=== PATIENT | male | born 1995 | race Asian ===

== ENCOUNTER 2018-01-19 00:29 | Emergency (ER) | payer OTHER, SELFPAY ==
[2018-01-19 00:33] VITALS: BP 128/93; PULSE 73; RESP 18; TEMP 37.2; O2SAT 100; BMI 21.7
--- NOTE | 2018-01-19 00:37 | DI.RAD.S_ITS ---
PROCEDURE: XR WRIST RT MIN 3V INDICATIONS: injured while lifting weights. TECHNIQUE: 4 views of the wrist were acquired. COMPARISON: None. FINDINGS: Bones: No fractures or dislocations. No suspicious bony lesions. Scaphoid view: Scaphoid is grossly intact Soft tissues: No suspicious soft tissue calcifications. IMPRESSION: No acute wrist fracture or dislocation. Dictated by: Byron Art M.D. on 01/19/2018 at 10:12 Approved by: Byron Art M.D. on 01/19/2018 at 10:12
--- NOTE | 2018-01-19 00:37 | ED.UPPEXIN ---
HPI - Extremity Injury (Upper) General Chief Complaint: Extremity Injury, Upper Stated Complaint: RIGHT HAND INJURY Time Seen by Provider: 01/19/18 00:37 Source: patient Mode of arrival: ambulatory Limitations: no limitations History of Present Illness HPI narrative: The patient was lifting weights 2 days ago, he was on the bench press. He developed discomfort in the right wrist, the discomfort has increased over the past 2 days. At this time the wrist is slightly swollen, and uncomfortable with any degree of motion. He has difficulty gripping with his right hand. He is right-hand dominant. He has no deformities to the hand or digits. He has no elbow pain. He has no other complaints, no other injuries. Related Data Previous Rx's Medication Instructions Recorded ibuprofen 600 mg PO Q6H PRN #30 tab 01/19/18 Allergies Allergy/AdvReac Type Severity Reaction Status Date / Time No Known Drug Allergies Allergy Verified 01/19/18 00:37 Review of Systems Constitutional Reports weakness Musculoskeletal Reports system reviewed and no additional complaints, except as docu and Denies numbness Integumentary/Breasts Denies rash and Denies wounds Neurologic Denies numbness and Reports weakness [facility] Medical History Healthy adult (Acute) Social History Smoking Status: Never smoker Exam Initial Vital Signs Initial Vital Signs: Vital Signs Temperature 99.0 F 01/19/18 00:33 Pulse Rate 73 01/19/18 00:33 Respiratory Rate 18 01/19/18 00:33 Blood Pressure 128/93 H 01/19/18 00:33 Pulse Oximetry 100 01/19/18 00:33 Const General: cooperative, healthy appearing and No comfortable Cardio Pulses: other (Normal capillary refill to the right digits.) Skin General: no rashes or lesions noted, No jaundice and No petechiae Neuro General: alert, oriented x3, gait normal and no focal motor deficits Speech: speech normal Extrem General: other (The patient has right wrist snuffbox tenderness and dorsal wrist tenderness. There is edema in the dorsal wrist. He has no laxity or palpable deformity. He has flexion extension in his digits, but motion is reduced due to the wrist pain. He has no numbness or tingling in the right hand. ) Procedures Orthopedic Splinting/Casting Injury #1: Side: right Upper Extremity Injury Location: wrist Upper Extremity Immobilizer: thumb spica (Short arm splint) Additional Comments: I applied the splint myself. The right hand is neurovascularly intact after splint application. Course Orders Ordered: ED Orders 01/19/18 00:37 XR wrist RT min 3V Stat Discontinued Medications Ibuprofen (Advil) 800 mg PO NOW ONE Stop: 01/19/18 01:34 Last Admin: 01/19/18 01:36 Dose: 800 mg Vital Signs - 8 hr 01/19/18 00:33 01/19/18 00:39 01/19/18 01:36 Temperature 99.0 F Pulse Rate 73 71 Pulse Rate [Right Radial] 77 Respiratory Rate 18 14 Blood Pressure 128/93 H Blood Pressure [Left Arm] 131/86 Pulse Oximetry 100 100 MDM - Extremity Injury (Upper) Imaging Data Right wrist x-ray:: My impression: Normal, no bony injury. MDM Narrative Medical decision making narrative: The patient has been placed in a right short-arm thumb spica splint. He will be referred back to his [place] doctor for continued care. Discharge Plan Departure Patient Disposition: Home Clinical Impression: Right wrist sprain, Occult fracture of scaphoid bone of right wrist Discharge Date/Time: 01/19/18 01:40 Interventions: ED Discharge Assessment Last Done: 01/19/18 01:40 Instructions: DI for Wrist Sprain Activity Restrictions/Additional Instructions: Motrin every 6 hr as needed for pain. Keep the splint in place, follow-up with her doctor next week. You will be placed on light duty. Return here as needed. Prescriptions: New ibuprofen 600 mg tablet 600 mg PO Q6H PRN (Reason: pain) Qty: 30 RF: 0 Stand Alone Forms: Work/School Restrictions
[2018-01-19 00:39] VITALS: PULSE 77
--- NOTE | 2018-01-19 00:43 | PC.NURSE ---
pt states he was lifting weight night. denies feeling any pop or experiencing any trauma during weightlifting. pt stated his pain started a little night but increased throughout the day.
--- NOTE | 2018-01-19 00:45 | ED_ITS ---
HPI - Extremity Injury (Upper) General Chief Complaint: Extremity Injury, Upper Stated Complaint: RIGHT HAND INJURY Time Seen by Provider: 01/19/18 00:37 Source: patient Mode of arrival: ambulatory Limitations: no limitations History of Present Illness HPI narrative: The patient was lifting weights 2 days ago, he was on the bench press. He developed discomfort in the right wrist, the discomfort has increased over the past 2 days. At this time the wrist is slightly swollen, and uncomfortable with any degree of motion. He has difficulty gripping with his right hand. He is right-hand dominant. He has no deformities to the hand or digits. He has no elbow pain. He has no other complaints, no other injuries. Related Data Previous Rx's Medication Instructions Recorded ibuprofen 600 mg PO Q6H PRN #30 tab 01/19/18 Allergies Allergy/AdvReac Type Severity Reaction Status Date / Time No Known Drug Allergies Allergy Verified 01/19/18 00:37 Review of Systems Constitutional Reports weakness Musculoskeletal Reports system reviewed and no additional complaints, except as docu and Denies numbness Integumentary/Breasts Denies rash and Denies wounds Neurologic Denies numbness and Reports weakness [facility] Medical History Healthy adult (Acute) Social History Smoking Status: Never smoker Exam Initial Vital Signs Initial Vital Signs: Vital Signs Temperature 99.0 F 01/19/18 00:33 Pulse Rate 73 01/19/18 00:33 Respiratory Rate 18 01/19/18 00:33 Blood Pressure 128/93 H 01/19/18 00:33 Pulse Oximetry 100 01/19/18 00:33 Const General: cooperative, healthy appearing and No comfortable Cardio Pulses: other (Normal capillary refill to the right digits.) Skin General: no rashes or lesions noted, No jaundice and No petechiae Neuro General: alert, oriented x3, gait normal and no focal motor deficits Speech: speech normal Extrem General: other (The patient has right wrist snuffbox tenderness and dorsal wrist tenderness. There is edema in the dorsal wrist. He has no laxity or palpable deformity. He has flexion extension in his digits, but motion is reduced due to the wrist pain. He has no numbness or tingling in the right hand. ) Procedures Orthopedic Splinting/Casting Injury #1: Side: right Upper Extremity Injury Location: wrist Upper Extremity Immobilizer: thumb spica (Short arm splint) Additional Comments: I applied the splint myself. The right hand is neurovascularly intact after splint application. Course Orders Ordered: ED Orders 01/19/18 00:37 XR wrist RT min 3V Stat Discontinued Medications Ibuprofen (Advil) 800 mg PO NOW ONE Stop: 01/19/18 01:34 Last Admin: 01/19/18 01:36 Dose: 800 mg Vital Signs - 8 hr 01/19/18 00:33 01/19/18 00:39 01/19/18 01:36 Temperature 99.0 F Pulse Rate 73 71 Pulse Rate [Right Radial] 77 Respiratory Rate 18 14 Blood Pressure 128/93 H Blood Pressure [Left Arm] 131/86 Pulse Oximetry 100 100 MDM - Extremity Injury (Upper) Imaging Data Right wrist x-ray:: My impression: Normal, no bony injury. MDM Narrative Medical decision making narrative: The patient has been placed in a right short- arm thumb spica splint. He will be referred back to his [place] doctor for continued care. Discharge Plan Departure Patient Disposition: Home Clinical Impression: Right wrist sprain, Occult fracture of scaphoid bone of right wrist Discharge Date/Time: 01/19/18 01:40 Interventions: ED Discharge Assessment Last Done: 01/19/18 01:40 Instructions: DI for Wrist Sprain Activity Restrictions/Additional Instructions: Motrin every 6 hr as needed for pain. Keep the splint in place, follow-up with her doctor next week. You will be placed on light duty. Return here as needed. Prescriptions: New ibuprofen 600 mg tablet 600 mg PO Q6H PRN (Reason: pain) Qty: 30 RF: 0 Stand Alone Forms: Work/School Restrictions
[2018-01-19 01:36] VITALS: BP 131/86; PULSE 71; RESP 14; O2SAT 100
[2018-01-19] MEDS: IBUPROFEN 400 MG TABLET 800 MG PO (01:36)
== END 2018-01-19 01:40 | disposition home or self-care (01) ==
PROVIDERS: Emergency Provider Emergency Medicine
DX: S62.001A Unspecified fracture of navicular [scaphoid] bone of right wrist, initial encounter for closed fracture (principal); S63.501A Unspecified sprain of right wrist, initial encounter; Y93.B1 Activity, exercise machines primarily for muscle strengthening
CPT/HCPCS: 73110; 99282; 99283